=== PATIENT | male | born 1955 | race African-American/Black ===

== ENCOUNTER → 2017-01-17 | Day surgery (SDC) | payer BC ==
[~2017-01-17] MED LIST: HYDROmorphone 2 MG/ML VIAL IV PRN; IV RINGERS,LACTATED 1000ML 1,000 ML IV SCH; LIDOCAINE 1% PF 2 ML VIAL. ID PRN; LIDOCAINE 2% PF Vial for OR 5 ML VIAL. ONE; MORPHINE SULFATE 2 MG/ML DISP.SYRIN. IV PRN; OLME1TAB25 PO; ONDANSETRON PF 4 MG/2 ML VIAL. IV PRN; PARO10TA57 PO; PROCHLORPERAZINE 10 MG/2 ML VIAL. IV PRN; PROPOFOL 20 ML IV ONE; RANI150C PO; SIMV20TA3 PO; fentaNYL PF VIAL 100 MCG/2 ML VIAL IV PRN
--- NOTE | 2017-01-17 09:24 | PDOC1 ---
HISTORY & PHYSICAL H&P Keaton Merchant Sr [id number] 1955 12/18/2016 03:30 PM 03/31 [facility] PATIENTS [facility] [address] [place] [address] Ph. [phone] Patient: Keaton Merchant Sr Date of : 1955 Date: 12/18/2016 3:30 PM Visit Type: Office Visit This 61 year old male presents for H/o colorectal polyp and GERD. History of Present Illness: 1. H/o colorectal polyp Prior screening: colonoscopy. Risk Factors: h/o adenomatous colon polyp. Pertinent negatives include abdominal pain, change in bowel habits, change in stool caliber, constipation, decreased appetite, diarrhea, melena, nausea, rectal bleeding, vomiting, weight gain and weight loss. Additional information : No family history of colon cancer, No family history of Crohn's/colitis, No NSAID/ASA use and Last colonoscopy 2013 and had adenomatous polyps. 2. GERD Pertinent negatives include melena, nausea, vomiting, weight gain and weight loss. Additional information: Has history of chronic cough and GERD. Had EGD in 2009 and had GERD and gastritis and small duodenal ulcer. INTAKE COMMENTS: Intake Comments: Nurse Note: the pt is here today due to h/o polyps in 2013. 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 Flu syndrome 06/09/2015 Anxiety state 12/07/2014 Acute bronchitis, unspecified organism 06/09/2015 PAST MEDICAL/SURGICAL HISTORY (Detailed) Disease/disorder Onset Date Management Date Comments Benign Hypertension Colon polyps Colonoscopy with biopsy 01/14/2014 Esophageal Reflux gastric ulcer 2010 Hyperlipidemia NEC/NOS hypertension Hypertension, Benign Hypertension, Benign obesity Other and unspecified hyperlipidemia Peptic ulcer disease reflux esophagitis 2010 Reflux esophagitis DIAGNOSTICS HISTORY: Test Ordered Interpretation Result completed [facility] GI ENDOSCOPY, DIAGNOSIS 08/31/2009 Abnormal reflux esophagitis, gastritis, superficial gastric ulcer. 08/31/2009 Colonoscopy 12/29/2013 abnormal Imp: poylp in the cecum(bx), BX: tubular adenoma 01/14/2014 Test Ordered Ordering Comments Modifier [facility] GI ENDOSCOPY, DIAGNOSIS 08/31/2009 Gastroenterology Colonoscopy 12/29/2013 Medications (Active): Started Medication Directions Instruction Stopped 11/04/2016 BENICAR HCT 40 MG-25 MG TABLET TAKE 1 TABLET BY ORAL ROUTE EVERY DAY 06/26/2009 Multiple Vitamin Tab take 1 tablet by ORAL route every day with food 12/04/2016 Paxil 10 mg tablet TAKE 1 TABLET BY MOUTH EVERY DAY 09/03/2016 RANITIDINE 150 MG TABLET TAKE 1 TABLET BY ORAL ROUTE 2 TIMES EVERY DAY 01/18/2016 SIMVASTATIN TABS 20MG TAKE 1 TABLET DAILY IN THE EVENING Allergies: Ingredient Reaction Medication Name Comment AMLODIPINE leg swelling PENICILLINS Hives REVIEW OF SYSTEMS System Neg/Pos Details Constitutional Negative Chills, fever, malaise, weight gain and weight loss. ENMT Negative Sore throat. Eyes Negative Double vision. Respiratory Negative Dyspnea and wheezing. Cardio Negative Chest pain and irregular heartbeat/palpitations. GI Positive See HPI. GI Negative Abdominal pain, change in bowel habits, change in stool caliber, constipation, decreased appetite, diarrhea, melena, nausea, see HPI, rectal bleeding and vomiting. Negative Dysuria and hematuria. Endocrine Negative Cold intolerance and heat intolerance. Psych Negative Anxiety. Integumentary Negative Hives and rash. MS Negative Joint pain. Davis/Lymph Negative Easy bleeding and easy bruising. Allergic/Immuno Negative Food allergies. PHYSICAL EXAM: Exam Findings Details Constitutional Normal Well developed. Eyes Normal Conjunctiva - Right: Normal, Left: Normal. Sclera - Right: Normal, Left: Normal. Nasopharynx Normal Lips/teeth/gums - Normal. Neck Exam Normal Inspection - Normal. Thyroid gland - Normal. Respiratory Normal Inspection - Normal. Auscultation - Normal. Cardiovascular Normal Regular rate and rhythm. No murmurs, gallops, or rubs. Vascular Normal Pulses - Carotids: Normal, Femoral: Normal, Dorsalis pedis: Normal. Abdomen Normal Inspection - Normal. Anterior palpation - No guarding. No abdominal tenderness. No hepatic enlargement. No splenic enlargement. No hernia. No ascites. Skin Normal Inspection - Normal. Extremity Normal No edema. Psychiatric * Oriented to time, place, person and situation. Psychiatric Normal Appropriate mood and effect. Assessment/Plan # Detail Type Description 1. Assessment GERD with esophagitis (K21.0). Patient Plan schedule EGD at Plan Orders Further diagnostic evaluations ordered today include(s) EGD to be performed today. 2. Assessment History of colon polyps (Z86.010). Patient Plan schedule colonoscopy at Plan Orders Further diagnostic evaluations ordered today include(s) Colonoscopy to be performed today. He is to schedule a follow-up visit with Branden Gordon MD upon completion of work-up Electronically signed by: Branden Gordon MD 12/18/2016 03:59 PM Document generated by: Branden Gordon 12/18/2016 03:59 PM Gee Guthrie MD, Family Practice; Nicholas Horner MD Internal Medicine; Dalila Washburn MD, Internal Medicine; Veronica Gordno MD Internal Medicine; Branden Gordon MD, Gastroenterology; Carlo Montenegro MD, Rheumatology, S[facility] Boogie, Physical Medicine/Rehab JAngleika Bland APRN ------ 01/17/17 Patient seen and examined. No change in H&P. BRANDEN GORDON MD Jan 17, 2017 09:24
[2017-01-17 10:30] VITALS: BP 139/75
== END | disposition home or self-care (01) ==
LOC: ENDOS 08:25
PROVIDERS: ATTEND Internal Medicine Gastroenterology
DX: Z09 Encounter for follow-up examination after completed treatment for conditions other than malignant neoplasm (principal); Z87.19 Personal history of other diseases of the digestive system; K21.9 Gastro-esophageal reflux disease without esophagitis; E78.00 Pure hypercholesterolemia, unspecified; I10 Essential (primary) hypertension; F41.9 Anxiety disorder, unspecified; Z88.0 Allergy status to penicillin; Z88.8 Allergy status to other drugs, medicaments and biological substances
CPT/HCPCS: 43235; 45378; J2704; J2001